=== PATIENT | male | born 1995 | race Two or more races ===

== ENCOUNTER → 2016-06-28 | Outpatient (CLI) | payer OTHER ==
--- NOTE | 2016-06-28 18:23 | CT ---
CT abdomen without contrast Indication: Periumbilical pain Comparison: None available Technique: Multiple axial images of the abdomen were obtained from the lung bases to the pubic symphysis withou t the administration of IV contrast. Coronal and sagittal images were also provided. Radiation dose reduction techniques were performed utilizing adjustment for MA/kVP based on patient body size. Findings: The visualized portions of the lung bases are unremarkable. The bony structures are grossly intact. Given the limitations of a noncontrast examination the liver, gallbladder, bile ducts, spleen, pancr eas and adrenal glands are normal. Neither kidney demonstrates evidence of nephrolithiasis, hydronep hrosis or mass. Upper GI tract demonstrates no evidence of mass or obstruction. There is mild strand ing within the lower abdomen adjacent to the appendix with the appendix measuring approximate 7-8 mm and caliber. No appendicolith. Shoddy lymph nodes are noted within the right lower quadrant. No loc alizing fluid collection identified. There is a small fat containing periumbilical hernia. Review of bone windows demonstrates no acute osseous abnormality. Impression: The the There is mild stranding and shoddy lymph nodes within the lower abdomen adjacent appendix wh ich is borderline dilated, clinical correlation is needed as acute appendicitis is not excluded by t his examination. If there is concern for acute appendicitis correlation with CT abdomen and pelvis e xamination with IV and oral contrast would be recommended for further characterization. Very small fat containing periumbilical hernia. Reported By:
== END | disposition home or self-care (01) | DRG 563 ==
LOC: RAD 16:43
PROVIDERS: ATTEND Obstetrics & Gynecology Obstetrics
DX: S39.011A Strain of muscle, fascia and tendon of abdomen, initial encounter (principal)
CPT/HCPCS: 74150